=== PATIENT | female | born 1960 | race Two or more races ===

== ENCOUNTER 2018-07-08 12:48 | Emergency (ER) | payer SELFPAY ==
[~2018-07-08] VITALS: Ht 157.5 cm; Wt 45.4 kg
[2018-07-08 13:07] VITALS: BP 120/66
--- NOTE | 2018-07-08 13:42 | NUR ---
Patient eloped from facility. ER MD notified.
== END 2018-07-08 13:54 | disposition home or self-care (01) ==
LOC: ER 12:51
DX: Z48.01 Encounter for change or removal of surgical wound dressing (principal)
CPT/HCPCS: A4606; A6403; A6407; Z7502; Z7610